=== PATIENT | male | born 1965 | race Caucasian/White ===

== ENCOUNTER 2020-07-11 15:18 | Inpatient (IN) | payer BC ==
[~2020-07-11] VITALS: Ht 177.8 cm; Wt 126.4 kg
[2020-07-11] MEDS ORDERED: BUPRENORPHINE/NALOXONE 2-0.5MG SL ONE (15:47)
[2020-07-11] MEDS ORDERED: HEPARIN 5,000 UNITS/ML, 1ML IV ONE (19:00)
[2020-07-11] MEDS ORDERED: POLYETHYLENE GLYCOL 17 GM PACKET PO PRN (19:00)
[2020-07-11] MEDS ORDERED: OXYcodone IR 5MG TABLET PO PRN (19:00)
[2020-07-11] MEDS ORDERED: ONDANSETRON ODT 4 MG PO PRN (19:00)
[2020-07-11] MEDS ORDERED: BISACODYL 10 MG SUPP PR PRN (19:00)
[2020-07-11 21:44] LABS: BASOPHILS % (AUTO) 1 % (0-1); EOSINOPHILS % (AUTO) 2 % (1-7); LYMPHOCYTES % (AUTO) 20 % (22-44); MEAN CORPUSCULAR HEMOGLOBIN 32.4 pg (27.5-34.5); MEAN PLATELET VOLUME 8.5 fL (7.4-10.4); MONOCYTES % (AUTO) 7 % (2-9); NEUTROPHILS % (AUTO) 71 % (42-75); PLATELET COUNT 186 x10^3/uL (130-400); RED CELL DISTRIBUTION WIDTH 13.7 % (9.4-14.8)
[2020-07-11 21:52] LABS: MD NO
[2020-07-11] MEDS: SODIUM CHLORIDE FLUSH 10ML SYR IVF SCH (22:04)
[2020-07-11] MEDS: HEPARIN 25,000 UNITS/250ML PMX 250 ML IV PRN (22:07)
[2020-07-11 22:16] VITALS: BP 135/90
[2020-07-12 00:33] VITALS: BP 152/91
[2020-07-12 04:14] LABS: BASOPHILS % (AUTO) 1 % (0-1); EOSINOPHILS % (AUTO) 2 % (1-7); LYMPHOCYTES % (AUTO) 24 % (22-44); MEAN CORPUSCULAR HEMOGLOBIN 32.5 pg (27.5-34.5); MEAN CORPUSCULAR HGB CONC 34.2 g/dL (33.2-36.2); MEAN PLATELET VOLUME 8.3 fL (7.4-10.4); MONOCYTES % (AUTO) 8 % (2-9); NEUTROPHILS % (AUTO) 66 % (42-75); PLATELET COUNT 177 x10^3/uL (130-400); RED BLOOD COUNT 4.32 x10^6/uL (4.38-5.82); RED CELL DISTRIBUTION WIDTH 13.6 % (9.4-14.8)
[2020-07-12 04:16] LABS: MD NO
[2020-07-12 04:28] LABS: ANION GAP 4 mmol/L (5-15); CALCIUM 8.3 mg/dL (8.5-10.1); CHLORIDE 108 mmol/L (98-107); CREATININE 1.06 mg/dL (0.7-1.3)
[2020-07-12 07:54] VITALS: BP 150/88
[2020-07-12] MEDS ORDERED: ALPR0.5T PO (08:58)
[2020-07-12] MEDS ORDERED: MIRT30TA4 PO (08:58)
[2020-07-12] MEDS ORDERED: TADA10TA PO (08:58)
[2020-07-12] MEDS ORDERED: TEST200V3 IM (08:58)
[2020-07-12] MEDS ORDERED: BUPR75TA6 PO (08:58)
[2020-07-12] MEDS ORDERED: BUPR1FIL3 SL (08:58)
[2020-07-12] MEDS ORDERED: BUPRENORPHINE/NALOXONE 8-2MG SL SCH (11:30)
[2020-07-12] MEDS: HEPARIN 5,000 UNITS/ML, 1ML IV PRN ×2 (11:34→18:27)
[2020-07-12] MEDS: SENNA/DOCUSATE TABLET PO SCH (11:45)
[2020-07-12] MEDS: METHOCARBAMOL 500 MG TABLET PO PRN ×2 (11:45→20:25)
[2020-07-12] MEDS: SODIUM CHLORIDE FLUSH 10ML SYR IVF SCH ×2 (13:00→20:28)
[2020-07-12] MEDS ORDERED: OMNIPAQUE 350 MG/ML, 150 ML BOTTLE ONE (13:23)
[2020-07-12 13:48] VITALS: BP 142/91
[2020-07-12] MEDS: HEPARIN 25,000 UNITS/250ML PMX 250 ML IV PRN (18:26)
[2020-07-12 19:51] VITALS: BP 142/86
[2020-07-12] MEDS: ACETAMINOPHEN 325 MG TABLET PO PRN (20:25)
[2020-07-12] MEDS: BUPRENORPHINE/NALOXONE 8-2MG SL PRN (22:53)
[2020-07-13 01:05] VITALS: BP 122/79
[2020-07-13] MEDS: HEPARIN 5,000 UNITS/ML, 1ML IV PRN ×2 (02:11→09:29)
[2020-07-13 07:12] VITALS: BP 130/78
[2020-07-13] MEDS: SENNA/DOCUSATE TABLET PO SCH (07:50)
[2020-07-13] MEDS: METHOCARBAMOL 500 MG TABLET PO PRN (07:51)
[2020-07-13] MEDS: HEPARIN 25,000 UNITS/250ML PMX 250 ML IV PRN (09:33)
[2020-07-13] MEDS: BUPRENORPHINE/NALOXONE 8-2MG SL PRN (11:05)
[2020-07-13] MEDS: SODIUM CHLORIDE FLUSH 10ML SYR IVF SCH ×2 (11:05→21:11)
[2020-07-13 12:01] LABS: BASOPHILS % (AUTO) 1 % (0-1); EOSINOPHILS % (AUTO) 1 % (1-7); LYMPHOCYTES % (AUTO) 17 % (22-44); MEAN CORPUSCULAR HEMOGLOBIN 32.3 pg (27.5-34.5); MEAN CORPUSCULAR HGB CONC 33.9 g/dL (33.2-36.2); MEAN PLATELET VOLUME 8.8 fL (7.4-10.4); MONOCYTES % (AUTO) 6 % (2-9); NEUTROPHILS % (AUTO) 75 % (42-75); PLATELET COUNT 176 x10^3/uL (130-400); RED BLOOD COUNT 4.57 x10^6/uL (4.38-5.82); RED CELL DISTRIBUTION WIDTH 13.6 % (9.4-14.8)
[2020-07-13 12:05] LABS: MD NO
[2020-07-13 12:14] LABS: ANION GAP 5 mmol/L (5-15); CALCIUM 8.6 mg/dL (8.5-10.1); CHLORIDE 107 mmol/L (98-107)
[2020-07-13 12:19] LABS: CREATINE KINASE, TOTAL 86 U/L (39-308); CREATININE 1.08 mg/dL (0.7-1.3)
[2020-07-13 13:04] VITALS: BP 111/72
[2020-07-13] MEDS ORDERED: LIDOCAINE 1%, 10ML ONE (15:30)
[2020-07-13] MEDS ORDERED: FENTANYL PF 100 MCG/2ML ONE ×2 (15:55→17:15)
[2020-07-13] MEDS ORDERED: FLUMAZENIL 0.1 MG/1 ML, 5ML ONE (15:55)
[2020-07-13] MEDS ORDERED: MIDAZOLAM 1 MG/ML, 5ML ONE (15:55)
[2020-07-13] MEDS ORDERED: PROTAMINE SULFATE 10 MG/ML, 25ML ONE (15:55)
[2020-07-13] MEDS ORDERED: HEPARIN 1,000 UNITS/ML, 10ML ONE (15:55)
[2020-07-13] MEDS ORDERED: NALOXONE 1 MG/ML, 2ML ONE (15:55)
[2020-07-13] MEDS ORDERED: ALTEPLASE 10 MG in SODIUM CHLORIDE 0.9% 90 ML IV SCH ×2 (16:06→17:59)
[2020-07-13 18:28] LABS: MEAN CORPUSCULAR HEMOGLOBIN 32.4 pg (27.5-34.5); MEAN CORPUSCULAR HGB CONC 33.8 g/dL (33.2-36.2); MEAN PLATELET VOLUME 8.4 fL (7.4-10.4); PLATELET COUNT 169 x10^3/uL (130-400); RED BLOOD COUNT 4.47 x10^6/uL (4.38-5.82); RED CELL DISTRIBUTION WIDTH 13.4 % (9.4-14.8)
[2020-07-13] MEDS ORDERED: HYDROmorphone 1 MG/ML, 1ML INJ IV PRN (18:30)
[2020-07-13] MEDS ORDERED: ACETAMINOPHEN 325 MG TABLET PO PRN (18:30)
[2020-07-13] MEDS ORDERED: HYDROcodone/APAP 10/325 MG TABLET PO PRN (18:30)
[2020-07-13] MEDS ORDERED: HEPARIN 25,000 UNITS/250ML PMX 250 ML IV PRN (18:30)
[2020-07-13 18:37] LABS: INTERNATIONAL NORMALIZED RATIO 1.16 (0.93-1.1); PROTHROMBIN TIME 12.4 Seconds (9.6-11.5)
[2020-07-13 18:54] LABS: MD YES
[2020-07-13 18:57] LABS: <PLATELET ESTIMATE> ADEQUATE; <PLT MORPHOLOGY> NORMAL PLT MORPH; BASOS#(MANUAL) 0.14 x10^3/uL (0-0.1); BASOS% (MANUAL) 1 % (0-1); EOS#(MANUAL) 0.14 x10^3/uL (0.0-0.4); EOS% (MANUAL) 1 % (1-7); LYMPH#(MANUAL) 1.56 x10^3/uL (1-3.4); LYMPHS% (MANUAL) 11 % (22-44); MONOS#(MANUAL) 0.99 x10^3/uL (0.3-2.7); MONOS% (MANUAL) 7 % (2-9); SEG#(MANUAL) 11.36 x10^3/uL (1.8-6.8); SEGS% (MANUAL) 80 % (42-75)
[2020-07-13 18:58] LABS: <RBC MORPHOLOGY> NORMAL
[2020-07-13 19:11] LABS: ANION GAP 8 mmol/L (5-15); CALCIUM 8.3 mg/dL (8.5-10.1); CHLORIDE 110 mmol/L (98-107)
[2020-07-13 19:12] LABS: CREATININE 1.14 mg/dL (0.7-1.3)
[2020-07-13] MEDS: MIRTAZAPINE 30 MG TABLET PO SCH (21:11)
[2020-07-13] MEDS: ACETAMINOPHEN 325 MG TABLET PO PRN (21:11)
[2020-07-14 00:31] LABS: BASOPHILS % (AUTO) 0 % (0-1); EOSINOPHILS % (AUTO) 0 % (1-7); LYMPHOCYTES % (AUTO) 8 % (22-44); MEAN CORPUSCULAR HEMOGLOBIN 32.1 pg (27.5-34.5); MEAN CORPUSCULAR HGB CONC 33.7 g/dL (33.2-36.2); MONOCYTES % (AUTO) 6 % (2-9); NEUTROPHILS % (AUTO) 86 % (42-75); PLATELET COUNT 166 x10^3/uL (130-400); RED BLOOD COUNT 4.52 x10^6/uL (4.38-5.82); RED CELL DISTRIBUTION WIDTH 13.3 % (9.4-14.8)
[2020-07-14 00:33] LABS: MD NO
[2020-07-14 00:40] LABS: ANION GAP 6 mmol/L (5-15); CALCIUM 8.3 mg/dL (8.5-10.1); CHLORIDE 110 mmol/L (98-107); CREATININE 1.31 mg/dL (0.7-1.3)
[2020-07-14 00:51] LABS: INTERNATIONAL NORMALIZED RATIO 1.37 (0.93-1.1); PROTHROMBIN TIME 14.6 Seconds (9.6-11.5)
[2020-07-14] MEDS: ACETAMINOPHEN 325 MG TABLET PO PRN (02:25)
[2020-07-14 06:17] LABS: BASOPHILS % (AUTO) 1 % (0-1); EOSINOPHILS % (AUTO) 0 % (1-7); LYMPHOCYTES % (AUTO) 15 % (22-44); MD NO; MEAN CORPUSCULAR HEMOGLOBIN 32.3 pg (27.5-34.5); MEAN PLATELET VOLUME 8.3 fL (7.4-10.4); MONOCYTES % (AUTO) 7 % (2-9); NEUTROPHILS % (AUTO) 77 % (42-75); PLATELET COUNT 166 x10^3/uL (130-400); RED BLOOD COUNT 4.46 x10^6/uL (4.38-5.82); RED CELL DISTRIBUTION WIDTH 13.4 % (9.4-14.8)
[2020-07-14 06:27] LABS: INTERNATIONAL NORMALIZED RATIO 1.35 (0.93-1.1); PROTHROMBIN TIME 14.4 Seconds (9.6-11.5)
[2020-07-14 07:05] LABS: ALANINE AMINOTRANSFERASE 45 U/L (12-78); ALBUMIN 3.4 g/dL (3.4-5.0); ANION GAP 8 mmol/L (5-15); CALCIUM 8.2 mg/dL (8.5-10.1); CHLORIDE 111 mmol/L (98-107); CREATININE 1.13 mg/dL (0.7-1.3)
[2020-07-14 07:08] LABS: ALKALINE PHOSPHATASE 87 U/L (45-117); BILIRUBIN,TOTAL 1.7 mg/dL (0.2-1.0); TOTAL PROTEIN 6.9 g/dL (6.4-8.2)
[2020-07-14] MEDS: BUPROPION 75 MG TABLET PO SCH (08:09)
[2020-07-14] MEDS: SENNA/DOCUSATE TABLET PO SCH (08:09)
[2020-07-14] MEDS: SODIUM CHLORIDE FLUSH 10ML SYR IVF SCH ×2 (08:10→20:21)
[2020-07-14] MEDS ORDERED: FENTANYL PF 100 MCG/2ML ONE (11:32)
[2020-07-14] MEDS ORDERED: FLUMAZENIL 0.1 MG/1 ML, 5ML ONE (11:32)
[2020-07-14] MEDS ORDERED: MIDAZOLAM 1 MG/ML, 5ML ONE (11:32)
[2020-07-14] MEDS ORDERED: NALOXONE 1 MG/ML, 2ML ONE (11:33)
[2020-07-14] MEDS ORDERED: HEPARIN 1,000 UNITS/ML, 10ML ONE (11:33)
[2020-07-14 12:02] LABS: BASOPHILS % (AUTO) 0 % (0-1); EOSINOPHILS % (AUTO) 0 % (1-7); LYMPHOCYTES % (AUTO) 12 % (22-44); MEAN CORPUSCULAR HEMOGLOBIN 32.2 pg (27.5-34.5); MEAN CORPUSCULAR HGB CONC 33.7 g/dL (33.2-36.2); MEAN PLATELET VOLUME 8.2 fL (7.4-10.4); MONOCYTES % (AUTO) 6 % (2-9); NEUTROPHILS % (AUTO) 81 % (42-75); PLATELET COUNT 166 x10^3/uL (130-400); RED BLOOD COUNT 4.55 x10^6/uL (4.38-5.82); RED CELL DISTRIBUTION WIDTH 13.5 % (9.4-14.8)
[2020-07-14 12:09] LABS: ANION GAP 8 mmol/L (5-15); CALCIUM 8.5 mg/dL (8.5-10.1); CHLORIDE 111 mmol/L (98-107); CREATININE 1.05 mg/dL (0.7-1.3)
[2020-07-14 12:17] LABS: MD NO
[2020-07-14 12:26] LABS: INTERNATIONAL NORMALIZED RATIO 1.23 (0.93-1.1); PROTHROMBIN TIME 13.1 Seconds (9.6-11.5)
[2020-07-14] MEDS ORDERED: PROTAMINE SULFATE 10 MG/ML, 25ML ONE (13:00)
[2020-07-14] MEDS ORDERED: HEPARIN 25,000 UNITS/250ML PMX 250 ML IV PRN (14:00)
[2020-07-14] MEDS: HYDROcodone/APAP 5/325 TABLET PO PRN ×2 (14:13→15:30)
[2020-07-14] MEDS: HEPARIN 25,000 UNITS/250ML PMX 250 ML IV PRN (16:36)
[2020-07-14] MEDS ORDERED: HEPARIN 5,000 UNITS/ML, 1ML IV ONE (17:00)
[2020-07-14 18:56] LABS: BASOPHILS % (AUTO) 1 % (0-1); EOSINOPHILS % (AUTO) 0 % (1-7); LYMPHOCYTES % (AUTO) 12 % (22-44); MEAN CORPUSCULAR HEMOGLOBIN 32.1 pg (27.5-34.5); MEAN CORPUSCULAR HGB CONC 33.9 g/dL (33.2-36.2); MEAN PLATELET VOLUME 8.5 fL (7.4-10.4); MONOCYTES % (AUTO) 7 % (2-9); NEUTROPHILS % (AUTO) 80 % (42-75); PLATELET COUNT 158 x10^3/uL (130-400); RED BLOOD COUNT 4.38 x10^6/uL (4.38-5.82); RED CELL DISTRIBUTION WIDTH 13.7 % (9.4-14.8)
[2020-07-14 19:01] LABS: MD NO
[2020-07-14 19:04] LABS: ANION GAP 6 mmol/L (5-15); CALCIUM 8.2 mg/dL (8.5-10.1); CHLORIDE 110 mmol/L (98-107); CREATININE 1.05 mg/dL (0.7-1.3)
[2020-07-14 19:14] LABS: INTERNATIONAL NORMALIZED RATIO 1.21 (0.93-1.1); PROTHROMBIN TIME 12.9 Seconds (9.6-11.5)
[2020-07-14 19:56] VITALS: BP 142/84
[2020-07-14] MEDS: METHOCARBAMOL 500 MG TABLET PO PRN (20:21)
[2020-07-14] MEDS: MIRTAZAPINE 30 MG TABLET PO SCH (20:21)
[2020-07-14] MEDS: HEPARIN 5,000 UNITS/ML, 1ML IV PRN (22:52)
[2020-07-15 01:08] LABS: BASOPHILS % (AUTO) 0 % (0-1); EOSINOPHILS % (AUTO) 1 % (1-7); LYMPHOCYTES % (AUTO) 12 % (22-44); MEAN CORPUSCULAR HEMOGLOBIN 32.1 pg (27.5-34.5); MEAN PLATELET VOLUME 8.4 fL (7.4-10.4); MONOCYTES % (AUTO) 7 % (2-9); NEUTROPHILS % (AUTO) 80 % (42-75); PLATELET COUNT 159 x10^3/uL (130-400); RED BLOOD COUNT 4.24 x10^6/uL (4.38-5.82); RED CELL DISTRIBUTION WIDTH 13.7 % (9.4-14.8)
[2020-07-15 01:09] LABS: MD NO
[2020-07-15 01:17] LABS: ANION GAP 9 mmol/L (5-15); CALCIUM 8.1 mg/dL (8.5-10.1); CHLORIDE 109 mmol/L (98-107); CREATININE 0.98 mg/dL (0.7-1.3)
[2020-07-15 01:20] LABS: INTERNATIONAL NORMALIZED RATIO 1.13 (0.93-1.1); PROTHROMBIN TIME 12.1 Seconds (9.6-11.5)
[2020-07-15 01:55] VITALS: BP 162/89
[2020-07-15 06:16] LABS: FIBRINOGEN 200 mg/dL (200-340); INTERNATIONAL NORMALIZED RATIO 1.09 (0.93-1.1); PARTIAL THROMBOPLASTIN TIME 31 Seconds (25-31); PROTHROMBIN TIME 11.6 Seconds (9.6-11.5)
[2020-07-15 06:20] LABS: BASOPHILS % (AUTO) 0 % (0-1); EOSINOPHILS % (AUTO) 0 % (1-7); LYMPHOCYTES % (AUTO) 10 % (22-44); MEAN CORPUSCULAR HEMOGLOBIN 31.8 pg (27.5-34.5); MEAN CORPUSCULAR HGB CONC 33.4 g/dL (33.2-36.2); MEAN PLATELET VOLUME 8.2 fL (7.4-10.4); MONOCYTES % (AUTO) 6 % (2-9); NEUTROPHILS % (AUTO) 84 % (42-75); PLATELET COUNT 172 x10^3/uL (130-400); RED BLOOD COUNT 4.33 x10^6/uL (4.38-5.82); RED CELL DISTRIBUTION WIDTH 13.5 % (9.4-14.8)
[2020-07-15 06:21] LABS: MD NO
[2020-07-15] MEDS: HEPARIN 5,000 UNITS/ML, 1ML IV PRN ×3 (06:24→19:16)
[2020-07-15 06:33] LABS: ANION GAP 7 mmol/L (5-15); CALCIUM 8.2 mg/dL (8.5-10.1); CHLORIDE 107 mmol/L (98-107)
[2020-07-15 06:34] LABS: CREATININE 1.05 mg/dL (0.7-1.3)
[2020-07-15 07:59] VITALS: BP 167/89
[2020-07-15] MEDS: BUPROPION 75 MG TABLET PO SCH (08:18)
[2020-07-15] MEDS: BENAZEPRIL 20 MG TABLET PO SCH (08:18)
[2020-07-15] MEDS: AMLODIPINE 10 MG TAB PO SCH (08:18)
[2020-07-15] MEDS: SENNA/DOCUSATE TABLET PO SCH (08:18)
[2020-07-15] MEDS: SODIUM CHLORIDE FLUSH 10ML SYR IVF SCH ×2 (08:26→20:11)
[2020-07-15 12:18] LABS: BASOPHILS % (AUTO) 0 % (0-1); EOSINOPHILS % (AUTO) 0 % (1-7); LYMPHOCYTES % (AUTO) 7 % (22-44); MD NO; MEAN CORPUSCULAR HEMOGLOBIN 32.3 pg (27.5-34.5); MEAN CORPUSCULAR HGB CONC 33.6 g/dL (33.2-36.2); MONOCYTES % (AUTO) 4 % (2-9); NEUTROPHILS % (AUTO) 89 % (42-75); PLATELET COUNT 175 x10^3/uL (130-400); RED BLOOD COUNT 4.48 x10^6/uL (4.38-5.82); RED CELL DISTRIBUTION WIDTH 13.2 % (9.4-14.8)
[2020-07-15 12:28] LABS: ANION GAP 8 mmol/L (5-15); CALCIUM 8.3 mg/dL (8.5-10.1); CHLORIDE 103 mmol/L (98-107); CREATININE 1.38 mg/dL (0.7-1.3)
[2020-07-15 12:30] LABS: FIBRINOGEN 232 mg/dL (200-340); INTERNATIONAL NORMALIZED RATIO 1.07 (0.93-1.1); PARTIAL THROMBOPLASTIN TIME 28 Seconds (25-31); PROTHROMBIN TIME 11.4 Seconds (9.6-11.5)
[2020-07-15] MEDS: HEPARIN 25,000 UNITS/250ML PMX 250 ML IV PRN (12:42)
[2020-07-15 13:27] VITALS: BP 127/83
[2020-07-15 18:43] LABS: BASOPHILS % (AUTO) 0 % (0-1); EOSINOPHILS % (AUTO) 0 % (1-7); LYMPHOCYTES % (AUTO) 14 % (22-44); MEAN CORPUSCULAR HEMOGLOBIN 32.1 pg (27.5-34.5); MEAN CORPUSCULAR HGB CONC 33.8 g/dL (33.2-36.2); MEAN PLATELET VOLUME 8.3 fL (7.4-10.4); MONOCYTES % (AUTO) 7 % (2-9); NEUTROPHILS % (AUTO) 79 % (42-75); PLATELET COUNT 177 x10^3/uL (130-400); RED CELL DISTRIBUTION WIDTH 13.4 % (9.4-14.8)
[2020-07-15 18:47] LABS: MD NO
[2020-07-15 18:49] LABS: ANION GAP 7 mmol/L (5-15); CHLORIDE 105 mmol/L (98-107); CREATININE 1.04 mg/dL (0.7-1.3)
[2020-07-15 18:52] LABS: INTERNATIONAL NORMALIZED RATIO 1.07 (0.93-1.1); PROTHROMBIN TIME 11.4 Seconds (9.6-11.5)
[2020-07-15 19:29] VITALS: BP 125/77
[2020-07-15] MEDS: METHOCARBAMOL 500 MG TABLET PO PRN (20:11)
[2020-07-15] MEDS: MIRTAZAPINE 30 MG TABLET PO SCH (20:11)
[2020-07-16 00:54] LABS: BASOPHILS % (AUTO) 0 % (0-1); EOSINOPHILS % (AUTO) 1 % (1-7); LYMPHOCYTES % (AUTO) 17 % (22-44); MEAN CORPUSCULAR HEMOGLOBIN 31.9 pg (27.5-34.5); MEAN CORPUSCULAR HGB CONC 33.4 g/dL (33.2-36.2); MEAN PLATELET VOLUME 8.4 fL (7.4-10.4); MONOCYTES % (AUTO) 8 % (2-9); NEUTROPHILS % (AUTO) 75 % (42-75); PLATELET COUNT 186 x10^3/uL (130-400); RED BLOOD COUNT 4.14 x10^6/uL (4.38-5.82); RED CELL DISTRIBUTION WIDTH 13.8 % (9.4-14.8)
[2020-07-16 00:57] LABS: MD NO
[2020-07-16 01:02] LABS: ANION GAP 5 mmol/L (5-15); CHLORIDE 106 mmol/L (98-107); CREATININE 1.05 mg/dL (0.7-1.3)
[2020-07-16 01:03] LABS: INTERNATIONAL NORMALIZED RATIO 1.07 (0.93-1.1); PROTHROMBIN TIME 11.4 Seconds (9.6-11.5)
[2020-07-16 01:29] VITALS: BP 128/79
[2020-07-16] MEDS: HEPARIN 25,000 UNITS/250ML PMX 250 ML IV PRN (02:29)
[2020-07-16 07:12] VITALS: BP 141/81
[2020-07-16 07:29] LABS: ALANINE AMINOTRANSFERASE 71 U/L (12-78); ALBUMIN 3.4 g/dL (3.4-5.0); ANION GAP 8 mmol/L (5-15); CALCIUM 8.5 mg/dL (8.5-10.1); CHLORIDE 108 mmol/L (98-107); CREATININE 1.01 mg/dL (0.7-1.3)
[2020-07-16 07:30] LABS: INTERNATIONAL NORMALIZED RATIO 1.04 (0.93-1.1); PROTHROMBIN TIME 11.1 Seconds (9.6-11.5)
[2020-07-16] MEDS ORDERED: POTASSIUM CHLORIDE 20 MEQ TAB.ER.PRT PO ONE (07:30)
[2020-07-16 07:32] LABS: ALKALINE PHOSPHATASE 84 U/L (45-117); BILIRUBIN,TOTAL 0.7 mg/dL (0.2-1.0)
[2020-07-16] MEDS: SENNA/DOCUSATE TABLET PO SCH (08:24)
[2020-07-16] MEDS: BUPROPION 75 MG TABLET PO SCH (08:25)
[2020-07-16] MEDS: SODIUM CHLORIDE FLUSH 10ML SYR IVF SCH ×2 (08:25→19:49)
[2020-07-16] MEDS: AMLODIPINE 10 MG TAB PO SCH (08:25)
[2020-07-16] MEDS: BENAZEPRIL 20 MG TABLET PO SCH (08:25)
[2020-07-16] MEDS: HEPARIN 5,000 UNITS/ML, 1ML IV PRN (08:25)
[2020-07-16 08:50] LABS: BASOPHILS % (AUTO) 1 % (0-1); EOSINOPHILS % (AUTO) 1 % (1-7); LYMPHOCYTES % (AUTO) 20 % (22-44); MEAN CORPUSCULAR HEMOGLOBIN 32.2 pg (27.5-34.5); MEAN CORPUSCULAR HGB CONC 33.6 g/dL (33.2-36.2); MEAN PLATELET VOLUME 8.5 fL (7.4-10.4); MONOCYTES % (AUTO) 6 % (2-9); NEUTROPHILS % (AUTO) 73 % (42-75); PLATELET COUNT 194 x10^3/uL (130-400); RED BLOOD COUNT 4.41 x10^6/uL (4.38-5.82); RED CELL DISTRIBUTION WIDTH 13.7 % (9.4-14.8)
[2020-07-16 08:51] LABS: MD NO
[2020-07-16 13:37] VITALS: BP 159/94
[2020-07-16] MEDS: METHOCARBAMOL 500 MG TABLET PO PRN (16:11)
[2020-07-16] MEDS ORDERED: HEPARIN 5,000 UNITS/ML, 1ML IV PRN (16:30)
[2020-07-16] MEDS ORDERED: HEPARIN 25,000 UNITS/250ML PMX 250 ML IV PRN (16:30)
[2020-07-16] MEDS: MIRTAZAPINE 30 MG TABLET PO SCH (19:48)
[2020-07-16 20:23] VITALS: BP 138/65
[2020-07-16] MEDS: HYDROcodone/APAP 5/325 TABLET PO PRN (20:35)
[2020-07-16] MEDS: APIXABAN 5 MG TABLET PO SCH (20:35)
[2020-07-17 00:42] VITALS: BP 148/86
[2020-07-17] MEDS: METHOCARBAMOL 500 MG TABLET PO PRN (02:00)
[2020-07-17] MEDS: HYDROcodone/APAP 5/325 TABLET PO PRN ×2 (02:50→08:28)
[2020-07-17 05:06] LABS: BASOPHILS % (AUTO) 0 % (0-1); EOSINOPHILS % (AUTO) 1 % (1-7); LYMPHOCYTES % (AUTO) 10 % (22-44); MEAN CORPUSCULAR HEMOGLOBIN 32.1 pg (27.5-34.5); MEAN CORPUSCULAR HGB CONC 33.7 g/dL (33.2-36.2); MEAN PLATELET VOLUME 8.4 fL (7.4-10.4); MONOCYTES % (AUTO) 7 % (2-9); NEUTROPHILS % (AUTO) 81 % (42-75); PLATELET COUNT 219 x10^3/uL (130-400); RED BLOOD COUNT 4.24 x10^6/uL (4.38-5.82); RED CELL DISTRIBUTION WIDTH 13.5 % (9.4-14.8)
[2020-07-17 05:09] LABS: ANION GAP 8 mmol/L (5-15); CALCIUM 8.2 mg/dL (8.5-10.1); CHLORIDE 109 mmol/L (98-107)
[2020-07-17 05:24] LABS: MD NO
[2020-07-17 07:14] VITALS: BP 172/85
[2020-07-17] MEDS: BENAZEPRIL 20 MG TABLET PO SCH (08:28)
[2020-07-17] MEDS: BUPROPION 75 MG TABLET PO SCH (08:28)
[2020-07-17] MEDS: SENNA/DOCUSATE TABLET PO SCH (08:28)
[2020-07-17] MEDS: AMLODIPINE 10 MG TAB PO SCH (08:28)
[2020-07-17] MEDS: SODIUM CHLORIDE FLUSH 10ML SYR IVF SCH (08:28)
[2020-07-17] MEDS: APIXABAN 5 MG TABLET PO SCH (08:28)
[2020-07-17] MEDS: ACETAMINOPHEN 325 MG TABLET PO PRN (11:05)
[2020-07-17] MEDS ORDERED: AMLO-211 PO ×3 (11:20→14:07)
[2020-07-17] MEDS ORDERED: BENA20TA54 PO ×3 (11:20→14:07)
[2020-07-17] MEDS ORDERED: APIX5TAB PO ×3 (11:20→14:07)
[2020-07-17] MEDS ORDERED: HYDR-1067 PO ×3 (11:20→14:07)
[2020-07-17 12:37] VITALS: BP 158/91
== END 2020-07-17 15:00 | disposition home or self-care (01) | DRG 271 ==
LOC: ED 17:35 → EDIP 17:56 → 4NE 18:53 → CSU 07-13 17:32 → 3N 07-14 17:46
PROVIDERS: ADMIT Family Medicine; ATTEND Family Medicine
PROC: B51H1ZZ Fluoroscopy of Bilateral Pelvic (Iliac) Veins using Low Osmolar Contrast (ICD-10-PCS; principal; 2020-07-13)
PROC: 06CG3ZZ Extirpation of Matter from Left External Iliac Vein, Percutaneous Approach (ICD-10-PCS; 2020-07-13)
PROC: 06CN3ZZ Extirpation of Matter from Left Femoral Vein, Percutaneous Approach (ICD-10-PCS; 2020-07-13)
PROC: B51N1ZZ Fluoroscopy of Left Upper Extremity Veins using Low Osmolar Contrast (ICD-10-PCS; 2020-07-13)
PROC: 3E03317 Introduction of Other Thrombolytic into Peripheral Vein, Percutaneous Approach (ICD-10-PCS; 2020-07-13)
PROC: 06CG3ZZ Extirpation of Matter from Left External Iliac Vein, Percutaneous Approach (ICD-10-PCS; 2020-07-14)
PROC: 06CN3ZZ Extirpation of Matter from Left Femoral Vein, Percutaneous Approach (ICD-10-PCS; 2020-07-14)
PROC: B51C1ZZ Fluoroscopy of Left Lower Extremity Veins using Low Osmolar Contrast (ICD-10-PCS; 2020-07-14)
PROC: B51G1ZZ Fluoroscopy of Left Pelvic (Iliac) Veins using Low Osmolar Contrast (ICD-10-PCS; 2020-07-14)
PROC: 06PYX3Z Removal of Infusion Device from Lower Vein, External Approach (ICD-10-PCS; 2020-07-14)
DX: I82.412 Acute embolism and thrombosis of left femoral vein (principal); D68.59 Other primary thrombophilia; Z68.41 Body mass index [BMI] 40.0-44.9, adult; I80.292 Phlebitis and thrombophlebitis of other deep vessels of left lower extremity; Q26.8 Other congenital malformations of great veins; I82.429 Acute embolism and thrombosis of unspecified iliac vein; D69.6 Thrombocytopenia, unspecified; E29.1 Testicular hypofunction; E66.9 Obesity, unspecified; F32.9 Major depressive disorder, single episode, unspecified; F41.9 Anxiety disorder, unspecified; G47.33 Obstructive sleep apnea (adult) (pediatric); G89.29 Other chronic pain; I10 Essential (primary) hypertension; M79.7 Fibromyalgia; Z82.49 Family history of ischemic heart disease and other diseases of the circulatory system; Z87.891 Personal history of nicotine dependence
CPT/HCPCS: 36415; 37212; 37214; 75820; 99285; J0572; J0574; J3490; 37187; 37188; 70450; 74177; 80048; 80053; 82550; 83735; 85025; 85384; 85520; 85610; 85730; 87081; 93005; 99156; 99157; C1894; G0378; J1170; J1644; J2250; J2720; J2997; J3010; Q0162; Q9967; C1751; C1757; C1769; J2310